=== PATIENT | female | born 1975 | race Two or more races ===

== ENCOUNTER 2017-01-20 02:59 | Emergency (ER) | payer MEDICAID ==
[2017-01-20 03:58] VITALS: BP 104/72
== END 2017-01-20 03:58 | disposition home or self-care (01) ==
LOC: ED 02:59
DX: S50.311A Abrasion of right elbow, initial encounter (principal); V47.9XXA Unspecified car occupant injured in collision with fixed or stationary object in traffic accident, initial encounter; W22.10XA Striking against or struck by unspecified automobile airbag, initial encounter; Y93.89 Activity, other specified; Y99.8 Other external cause status; Y92.89 Other specified places as the place of occurrence of the external cause